=== PATIENT | male | born 1940 | race Caucasian/White ===

== ENCOUNTER 2020-01-17 06:10 | Day surgery (SDC) | payer MEDICARE, OTHER ==
[2020-01-17] MEDS ORDERED: Dextrose 5%-Lactated Ringers 1,000 ML IV SCH (06:48)
[2020-01-17] MEDS ORDERED: Propofol 200 MG/20 ML SDV ONE (07:02)
[2020-01-17] MEDS ORDERED: fentaNYL 100 MCG/2 ML SDV ONE (07:02)
[2020-01-17 09:39] VITALS: BP 154/72; PULSE 61
--- NOTE | 2020-01-23 12:16 | OR ---
DATE OF PROCEDURE: 01/17/2020 SURGEON: Sesar Garcia MD PREOPERATIVE DIAGNOSIS: History of recent gastrointestinal bleed. POSTOPERATIVE DIAGNOSIS: Upper GI endoscopy with normal findings today. PROCEDURE: Upper GI endoscopy with biopsy of gastric pouch for CLOtest. ANESTHESIA: IV sedation. INDICATIONS FOR PROCEDURE: This is an 79-year-old status post Gely-en-Y gastric bypass many years ago, who was noted to have some black stools in August, has had a history of previous gastrointestinal bleeding. These stools were associated with some mid epigastric pain. He is chronically on omeprazole 40 mg daily and increased the dose to 40 mg twice a day which he continues on presently. Plan is to proceed with upper GI endoscopy with biopsies and/or dilation as indicated. Potential risks including bleeding and perforation were discussed, and the patient wishes to proceed. DETAILS OF PROCEDURE: The patient was taken to the operating room, placed in a left lateral decubitus position. IV sedation was administered, after which the upper GI endoscope was passed orally through the length of the esophagus into the gastric pouch, from there through the gastrojejunostomy roughly 20 cm into the Gely limb. Overall, the findings this point were entirely normal. There was no significant inflammation in the hypopharynx, larynx, upper esophageal sphincter, or esophageal body. At the EG junction, this likewise was without significant inflammation. The gastric pouch was without redness or edema, and the gastrojejunostomy was widely patent and no marginal ulcer present. At this point, biopsies were obtained from the gastric pouch, sent for CLOtest for H pylori. Minimal bleeding from biopsy sites was seen and the procedure was then concluded. At this point, we will continue on a twice a day omeprazole dose. He will be following up with Maritza Tay in roughly 3 months. If the CLOtest is negative, it may be worthwhile at some point obtaining an additional H pylori antibodies. Otherwise, he will be following up in 3 months for routine bariatric followup. Sesra Garcia MD /[id number]
== END 2020-01-17 09:53 | disposition home or self-care (01) ==
LOC: JP.SDS 06:10
PROVIDERS: ATTEND Surgery
DX: K92.1 Melena (principal); R10.13 Epigastric pain; I10 Essential (primary) hypertension; G47.33 Obstructive sleep apnea (adult) (pediatric); K21.9 Gastro-esophageal reflux disease without esophagitis; Z11.59 Encounter for screening for other viral diseases; Z98.84 Bariatric surgery status; Z79.899 Other long term (current) drug therapy; Z87.19 Personal history of other diseases of the digestive system
CPT/HCPCS: 43239; 87081; J2704; J3010; J7121; U0002